=== PATIENT | female | born 2000 | race Caucasian/White ===

== ENCOUNTER 2018-08-22 14:25 | Outpatient (CLI) | payer OTHER ==
--- NOTE | 2018-08-22 15:54 | RAD ---
LUMBAR SPINE 3 VIEWS: HISTORY: Pain. COMPARISON: None. FINDINGS/IMPERSSION: Five lumbar-type vertebral bodies. Lumbar spine vertebral height is maintained. No fracture. Disk space heights are preserved. No malalignment in the neutral position. No abnormal motion upon flexi on or extension. POS: [facility]
== END 2018-08-22 14:26 | disposition home or self-care (01) ==
LOC: TBSIIMAG 14:25
PROVIDERS: ATTEND Neurological Surgery
DX: M54.5 Low back pain (principal)
CPT/HCPCS: 72100